=== PATIENT | male | born 1990 | race Caucasian/White ===

== ENCOUNTER 2021-03-12 19:32 | Emergency (ER) | payer OTHER, BC ==
[~2021-03-12] VITALS: Ht 172.7 cm; Wt 68.0 kg
[~2021-03-12 19:32] MED LIST: NOVOLOG100 UNIT/2
[2021-03-12] MEDS ORDERED: HYDROCODONE/APAP 10MG-325MG TAB PO ONE (22:00)
[2021-03-12] MEDS ORDERED: TYLENOL # 31 EA PO (22:04)
== END 2021-03-12 22:42 | disposition home or self-care (01) ==
LOC: ER 20:46
DX: S93.401A Sprain of unspecified ligament of right ankle, initial encounter (principal); V86.55XA Driver of 3- or 4- wheeled all-terrain vehicle (ATV) injured in nontraffic accident, initial encounter; Y92.89 Other specified places as the place of occurrence of the external cause; E11.65 Type 2 diabetes mellitus with hyperglycemia; F41.9 Anxiety disorder, unspecified
CPT/HCPCS: 36415; 72100; 82948; 99283